=== PATIENT | male | born 1985 | race African-American/Black ===

== ENCOUNTER 2017-09-13 15:41 | Emergency (ER) | payer OTHER, BC ==
[~2017-09-13] VITALS: Ht 177.8 cm; Wt 81.7 kg
[~2017-09-13 15:41] MED LIST: AZITHROMYCIN 2250 MG PO; FLEXERIL PO; IBUPROFEN 600600 M1 PO; IBUPROFEN 800800 M1 PO; MOBIC15 MG PO; NORCO 5-325 TA1 EACH PO; PHENERGAN 25 MG25 M1 PO; PREDNISONE 20 M20 MG PO; PROAIR HFA8.5 GM INH
[2017-09-13] MEDS ORDERED: TESSALON PERLE100 M1 PO (16:46)
[2017-09-13] MEDS ORDERED: CYCLOBENZAPRINE5 MG PO (16:47)
[2017-09-13] MEDS ORDERED: DOXYCYCLINE 10100 MG PO (16:47)
[2017-09-13] MEDS ORDERED: NABUMETONE 750750 M1 PO (16:49)
[2017-09-13] MEDS ORDERED: MEDROL4 MG PO (16:49)
[2017-09-13 18:08] VITALS: BP 126/79
== END 2017-09-13 18:11 | disposition home or self-care (01) ==
LOC: ER 15:41
DX: S06.0X0A Concussion without loss of consciousness, initial encounter (principal); F10.99 Alcohol use, unspecified with unspecified alcohol-induced disorder; Z88.5 Allergy status to narcotic agent; W01.0XXA Fall on same level from slipping, tripping and stumbling without subsequent striking against object, initial encounter; Y93.89 Activity, other specified; Y92.89 Other specified places as the place of occurrence of the external cause; Y99.0 Civilian activity done for income or pay

== ENCOUNTER 2017-10-15 08:15 | Emergency (ER) | payer BC, OTHER ==
[~2017-10-15] VITALS: Ht 177.8 cm; Wt 81.7 kg
[~2017-10-15 08:15] MED LIST changes: +CYCLOBENZAPRINE5 MG PO; +DOXYCYCLINE 10100 MG PO; +MEDROL4 MG PO; +NABUMETONE 750750 M1 PO; +TESSALON PERLE100 M1 PO
[2017-10-15] MEDS ORDERED: TRAMADOL 50 MG50 MG PO (08:36)
[2017-10-15 09:43] VITALS: BP 114/79
== END 2017-10-15 09:46 | disposition home or self-care (01) ==
LOC: ER 08:15
DX: G89.29 Other chronic pain (principal); M54.42 Lumbago with sciatica, left side; M25.512 Pain in left shoulder; Z88.5 Allergy status to narcotic agent

== ENCOUNTER 2018-08-28 08:37 | Emergency (ER) | payer BC, OTHER ==
[~2018-08-28] VITALS: Ht 177.8 cm; Wt 79.4 kg
[~2018-08-28 08:37] MED LIST changes: +TRAMADOL 50 MG50 MG PO
[2018-08-28] MEDS ORDERED: NAPROSYN500 MG PO (10:12)
[2018-08-28] MEDS ORDERED: AMOXICILLIN 50500 M1 PO (10:12)
[2018-08-28] MEDS ORDERED: BUTALB-APAP-CA1 EACH PO (10:12)
[2018-08-28 10:38] VITALS: BP 121/68
== END 2018-08-28 10:39 | disposition home or self-care (01) ==
LOC: ER 08:37
DX: J32.9 Chronic sinusitis, unspecified (principal); M26.609 Unspecified temporomandibular joint disorder, unspecified side; H61.22 Impacted cerumen, left ear; T16.2XXA Foreign body in left ear, initial encounter; Z88.5 Allergy status to narcotic agent

== ENCOUNTER 2019-09-08 19:42 | Emergency (ER) | payer BC, OTHER ==
[~2019-09-08] VITALS: Ht 177.8 cm; Wt 74.8 kg
[~2019-09-08 19:42] MED LIST changes: +AMOXICILLIN 50500 M1 PO; +BUTALB-APAP-CA1 EACH PO; +NAPROSYN500 MG PO
[2019-09-08] MEDS ORDERED: MAGIC MOUTHWASH SW&SWALLOW (20:51)
[2019-09-08] MEDS ORDERED: IBUPROFEN 600600 M1 PO (20:52)
[2019-09-08 21:06] VITALS: BP 99/57
== END 2019-09-08 21:06 | disposition home or self-care (01) ==
LOC: ER 19:42
DX: B34.9 Viral infection, unspecified (principal); K12.1 Other forms of stomatitis; Z88.5 Allergy status to narcotic agent

== ENCOUNTER 2020-10-12 11:39 | Emergency (ER) | payer OTHER ==
[~2020-10-12] VITALS: Ht 177.8 cm; Wt 72.6 kg
[~2020-10-12 11:39] MED LIST changes: +MAGIC MOUTHWASH SW&SWALLOW
[2020-10-12 11:40] VITALS: BP 111/63
[2020-10-12] MEDS ORDERED: IBUPROFEN 800800 M1 PO (12:19)
[2020-10-12] MEDS ORDERED: CYCLOBENZAPRINE5 MG PO (12:19)
== END 2020-10-12 12:52 | disposition home or self-care (01) ==
LOC: ER 11:39
DX: S29.012A Strain of muscle and tendon of back wall of thorax, initial encounter (principal); Z88.5 Allergy status to narcotic agent; W51.XXXA Accidental striking against or bumped into by another person, initial encounter; Y93.89 Activity, other specified; Y92.89 Other specified places as the place of occurrence of the external cause; Y99.8 Other external cause status

== ENCOUNTER 2021-01-01 20:29 | Emergency (ER) | payer OTHER ==
[~2021-01-01] VITALS: Ht 177.8 cm; Wt 74.8 kg
[2021-01-01] MEDS ORDERED: HYDROCODON-ACE1 EAC7 PO (21:14)
[2021-01-01 21:32] VITALS: BP 132/73
== END 2021-01-01 21:32 | disposition home or self-care (01) ==
LOC: ER 20:29
DX: S62.315A Displaced fracture of base of fourth metacarpal bone, left hand, initial encounter for closed fracture (principal); S62.317A Displaced fracture of base of fifth metacarpal bone, left hand, initial encounter for closed fracture; Z98.890 Other specified postprocedural states; Z79.899 Other long term (current) drug therapy; Z88.5 Allergy status to narcotic agent; W22.01XA Walked into wall, initial encounter; Y93.89 Activity, other specified; Y92.89 Other specified places as the place of occurrence of the external cause; Y99.8 Other external cause status

== ENCOUNTER 2021-03-10 22:14 | Emergency (ER) | payer OTHER ==
[~2021-03-10] VITALS: Ht 177.8 cm; Wt 68.0 kg
[~2021-03-10 22:14] MED LIST changes: +HYDROCODON-ACE1 EAC7 PO
[2021-03-11] MEDS ORDERED: IBUPROFEN 800800 MG PO (00:12)
[2021-03-11 00:15] VITALS: BP 106/73
== END 2021-03-11 00:18 | disposition home or self-care (01) ==
LOC: ER 22:14
DX: R51.9 Headache, unspecified (principal); G89.29 Other chronic pain; M54.5 Low back pain; Z98.890 Other specified postprocedural states; Z88.5 Allergy status to narcotic agent

== ENCOUNTER 2022-01-12 18:46 | Emergency (ER) | payer OTHER ==
[~2022-01-12] VITALS: Ht 177.8 cm; Wt 70.3 kg
[~2022-01-12 18:46] MED LIST changes: +IBUPROFEN 800800 MG PO
[2022-01-12 20:26] LABS: URINE BILIRUBIN NEGATIVE (Negative); URINE BLOOD NEGATIVE (Negative); URINE CLARITY CLEAR; URINE COLOR YELLOW; URINE GLUCOSE-RANDOM* NEGATIVE (Negative); URINE KETONES NEGATIVE (Negative); URINE LEUKOCYTES-REFLEX NEGATIVE (Negative); URINE NITRITE-REFLEX NEGATIVE (Negative); URINE PROTEIN (DIPSTICK) NEGATIVE (Negative); URINE SPECIFIC GRAVITY 1.025 (1.005-1.035); URINE UROBILINOGEN 0.2 E.U./dl (0.2-1.0)
[2022-01-12 20:26] LABS: HEMATOCRIT 45.7 % (42.0-52.0); MCH 29.1 pg (26.0-34.0); MCHC 34.9 g/dL (28.0-37.0); MCV 83.4 fL (80.0-100.0); RBC 5.48 mil/uL (4.50-6.00); RDW 13.8 % (10.5-14.5); WBC 5.6 thou/uL (4.0-11.0)
[2022-01-12 20:38] LABS: CALCIUM 9.4 mg/dL (8.5-10.1); POTASSIUM 3.8 mmol/L (3.5-5.1)
[2022-01-12 20:50] LABS: ALBUMIN 3.8 g/dL (3.4-5.0); TOTAL BILIRUBIN 0.3 mg/dL (0.2-1.0); TOTAL PROTEIN 7.5 g/dL (6.4-8.2)
[2022-01-12] MEDS ORDERED: ZOFRAN ODT4 MG PO (21:15)
[2022-01-12 21:24] VITALS: BP 128/74
== END 2022-01-12 21:24 | disposition home or self-care (01) ==
LOC: ER 18:46
PROVIDERS: Nurse Practitioner Family
DX: R11.2 Nausea with vomiting, unspecified (principal); R19.7 Diarrhea, unspecified; Z98.890 Other specified postprocedural states; Z20.822 Contact with and (suspected) exposure to COVID-19